=== PATIENT | male | born 1950 | race Caucasian/White ===

== ENCOUNTER 2019-03-23 21:46 | Emergency (ER) | payer BC, MEDICARE ==
[2019-03-23 22:34] VITALS: BP 142/107
[2019-03-23] MEDS ORDERED: Ketorolac 30 MG/ML SDV IVPUSH ONE (23:05)
--- NOTE | 2019-03-23 23:07 | EDM.PDOC ---
ED HPI GENERAL MEDICAL PROBLEM - General Chief Complaint: Gastrointestinal Problem Stated Complaint: CONSTIPATED,CRAMPS Time Seen by Provider: 03/23/19 23:05 Source of Information: Reports: Patient History Limitations: Reports: No Limitations - History of Present Illness INITIAL COMMENTS - FREE TEXT/NARRATIVE: p had a bm yesterday nd tonight he is very uncomfortable. He feels like he can, t get the stool out. He is having cramps because of that. Onset: Other ( this pm he is very uncomfortable. ) Duration: Hour(s): Location: Reports: Abdomen, Other (rectal pain) Associated Symptoms: Reports: No Other Symptoms - Related Data Allergies Allergy/AdvReac Type Severity Reaction Status Date / Time No Known Allergies Allergy Verified 07/28/16 01:37 Home Meds: Home Meds busPIRone HCl [Buspirone HCl] 10 mg PO BID 07/28/16 [History] Aspirin 81 mg PO DAILY 03/23/19 [History] PARoxetine HCl [Paroxetine HCl] 20 mg PO DAILY 03/23/19 [History] Simvastatin 20 mg PO DAILY 03/23/19 [History] Past Medical History Cardiovascular History: Reports: High Cholesterol Gastrointestinal History: Reports: GERD Other Gastrointestinal History: taking Omeprazole daily Musculoskeletal History: Reports: Arthritis Psychiatric History: Reports: Anxiety, Depression - Infectious Disease History Infectious Disease History: Reports: Chicken Pox - Past Surgical History HEENT Surgical History: Reports: Other (See Below) GI Surgical History: Reports: None, Cholecystectomy, Hernia, Inguinal Social & Family History - Family History Family Medical History: Noncontributory - Tobacco Use Smoking Status *Q: Never Smoker - Caffeine Use Caffeine Use: Reports: Coffee - Recreational Drug Use Recreational Drug Use: No - Living Situation & Occupation Living situation: Reports: , with Spouse ED ROS GENERAL - Review of Systems Review Of Systems: See Below Constitutional: Reports: No Symptoms HEENT: Reports: No Symptoms Respiratory: Reports: No Symptoms Cardiovascular: Reports: No Symptoms Endocrine: Reports: No Symptoms GI/Abdominal: Reports: No Symptoms, Constipation, Other ( rectal pressure. ) : Reports: No Symptoms Musculoskeletal: Reports: No Symptoms Skin: Reports: No Symptoms Neurological: Reports: No Symptoms ED EXAM, GI/ABD - Physical Exam Exam: See Below Text/Narrative:: pt arrived with pain in the lower abdoman. He feels like he has alot of stool pushing against the rectum. Exam Limited By: No Limitations General Appearance: Alert, Moderate Distress Ears: Normal TMs Nose: Normal Inspection Throat/Mouth: Normal Inspection Head: Atraumatic Neck: Normal Inspection Respiratory/Chest: No Respiratory Distress Cardiovascular: Regular Rate, Rhythm GI/Abdominal Exam: Other (pressure on the rectum. He is tender without guarding n the lower abdoman. ) (Male) Exam: Deferred Rectal (Males) Exam: Other ( Pt has a large fecal impaction. ) Back Exam: Normal Inspection Extremities: Normal Inspection Neurological: Alert, Oriented, Normal Cognition Psychiatric: Normal Mood Course - Vital Signs Last Recorded V/S: Last Vital Signs Temp 35.6 C 03/23/19 22:34 Pulse 100 03/23/19 22:34 Resp 18 03/23/19 22:34 BP 142/107 H 03/23/19 22:34 Pulse Ox 97 03/23/19 22:34 - Orders/Labs/Meds Labs: Laboratory Tests 03/23/19 03/23/19 Range/Units 23:04 23:15 WBC 12.7 H (4.5-11.0) K/uL RBC 5.02 (4.30-5.90) M/uL Hgb 14.4 (12.0-15.0) g/dL Hct 43.0 (40.0-54.0) % MCV 86 (80-98) fL MCH 29 (27-31) pg MCHC 34 (32-36) % Plt Count 210 (150-400) K/uL Neut % (Auto) 83 H (36-66) % Lymph % (Auto) 8 L (24-44) % [place] % (Auto) 9 H (2-6) % Eos % (Auto) 1 L (2-4) % Baso % (Auto) 0 (0-1) % Sodium 139 L (140-148) mmol/L Potassium 3.7 (3.6-5.2) mmol/L Chloride 102 (100-108) mmol/L Carbon Dioxide 28 (21-32) mmol/L Anion Gap 12.7 (5.0-14.0) mmol/L BUN 16 D (7-18) mg/dL Creatinine 1.1 (0.8-1.3) mg/dL Est Cr Clr Drug Dosing 60.09 mL/min Estimated GFR (MDRD) > 60 (>60) Glucose 182 H (74-106) mg/dL Calcium 9.1 (8.5-10.1) mg/dL Total Bilirubin 0.4 (0.2-1.0) mg/dL AST 21 (15-37) U/L ALT 34 (12-78) U/L Alkaline Phosphatase 75 (46-116) U/L Total Protein 6.8 (6.4-8.2) g/dL Albumin 3.3 L (3.4-5.0) g/dL Globulin 3.5 (2.3-3.5) g/dL Albumin/Globulin Ratio 0.9 L (1.2-2.2) Meds: Medications Discontinued Medications Generic Name Dose Route Start Last Admin Trade Name Freq PRN Reason Stop Dose Admin Hydromorphone HCl 0.5 mg 03/23/19 23:55 03/24/19 00:03 Dilaudid IM 03/23/19 23:56 0.5 mg ONETIME ONE Administration Ketorolac Tromethamine 15 mg 03/23/19 23:05 Toradol IVPUSH 03/23/19 23:06 ONETIME ONE - Re-Assessments/Exams Free Text/Narrative Re-Assessment/Exam: 03/24/19 00:52 pt was given a oil retention enema and then 2 soap suids enemas with good results. Pt is definitely comfortable at this time. 03/27/19 19:28 Departure - Departure Time of Disposition: 00:48 Disposition: Home, Self-Care 01 Condition: Fair Clinical Impression: Constipation - Discharge Information Instructions: Constipation, Adult Referrals: Anne Marie Gomez MD [Primary Care Provider] - Forms: ED Department Discharge Care Plan Goals: schedule for colonscopy, eat 4-5 prunes daily, push fluids, gummy fibers 3-4 daily, high fiber diet, appt in 4-[address] Dumas
[2019-03-23] MEDS ORDERED: HYDROmorphone 0.5 MG/0.5 ML Syringe IM ONE (23:55)
== END 2019-03-24 01:08 | disposition home or self-care (01) ==
LOC: JP.ED 21:46
DX: K59.00 Constipation, unspecified (principal); K21.9 Gastro-esophageal reflux disease without esophagitis; M19.90 Unspecified osteoarthritis, unspecified site; F41.9 Anxiety disorder, unspecified; F32.9 Major depressive disorder, single episode, unspecified; Z90.49 Acquired absence of other specified parts of digestive tract; Z79.82 Long term (current) use of aspirin; Z79.899 Other long term (current) drug therapy
CPT/HCPCS: 36415; 80053; 85025; 96372; 96374; 99283; J1170

== ENCOUNTER 2019-03-29 12:31 | Emergency (ER) | payer MEDICARE ==
--- NOTE | 2019-03-29 12:58 | EDM.PDOC ---
ED HPI GENERAL MEDICAL PROBLEM - General Chief Complaint: Gastrointestinal Problem Stated Complaint: BLOOD/DARK STOOL Time Seen by Provider: 03/29/19 12:52 Source of Information: Reports: Patient, Family, RN Notes Reviewed History Limitations: Reports: No Limitations - History of Present Illness INITIAL COMMENTS - FREE TEXT/NARRATIVE: 68-year-old gentleman presents emergency department today with complaint of black stool he also had one bout of emesis yesterday with bright red blood, at this time no nausea vomiting shortness breath or chest pain at this is a new event for him he has had EGDs in the past with dilation as well as colonoscopy estimates about 5 years ago for both - Related Data Allergies Allergy/AdvReac Type Severity Reaction Status Date / Time No Known Allergies Allergy Verified 03/29/19 13:09 Home Meds: Home Meds busPIRone HCl [Buspirone HCl] 10 mg PO BEDTIME 07/28/16 [History] Aspirin 81 mg PO DAILY 03/23/19 [History] PARoxetine HCl [Paroxetine HCl] 20 mg PO DAILY 03/23/19 [History] Simvastatin 20 mg PO DAILY 03/23/19 [History] busPIRone [Buspar] 20 mg PO ACBREAKFAST 03/29/19 [History] busPIRone [Buspar] 20 mg PO ACDINNER 03/29/19 [History] Past Medical History Cardiovascular History: Reports: High Cholesterol Gastrointestinal History: Reports: GERD Other Gastrointestinal History: taking Omeprazole daily Musculoskeletal History: Reports: Arthritis Psychiatric History: Reports: Anxiety, Depression - Infectious Disease History Infectious Disease History: Reports: Chicken Pox - Past Surgical History HEENT Surgical History: Reports: Other (See Below) GI Surgical History: Reports: None, Cholecystectomy, Hernia, Inguinal Social & Family History - Family History Family Medical History: Noncontributory - Caffeine Use Caffeine Use: Reports: Coffee - Living Situation & Occupation Living situation: Reports: , with Spouse ED ROS GENERAL - Review of Systems Review Of Systems: See Below Constitutional: Reports: No Symptoms HEENT: Reports: No Symptoms Respiratory: Reports: No Symptoms Cardiovascular: Reports: No Symptoms GI/Abdominal: Reports: Black Stool, Hematemesis ED EXAM, GI/ABD - Physical Exam Exam: See Below Exam Limited By: No Limitations General Appearance: Alert, WD/WN, No Apparent Distress Respiratory/Chest: No Respiratory Distress, Lungs Clear, Normal Breath Sounds, No Accessory Muscle Use, Chest Non-Tender Cardiovascular: Regular Rate, Rhythm, No Murmur GI/Abdominal Exam: Soft, Non-Tender Course - Vital Signs Last Recorded V/S: Last Vital Signs Temp 95.5 F 03/29/19 12:45 Pulse 97 03/29/19 13:08 Resp 16 03/29/19 13:08 BP 171/98 H 03/29/19 13:08 Pulse Ox 98 03/29/19 13:08 - Orders/Labs/Meds Orders: Active Orders 24 hr Category Date Time Status Peripheral IV Care [RC] . DIRECTED Care 03/29/19 14:03 Active Pantoprazole [ProTONIX IV] Med 03/29/19 14:15 Active 80 mg IVPUSH .BOLUS Sodium Chloride 0.9% [Saline Flush] Med 03/29/19 14:03 Active 10 ml FLUSH ASDIRECTED PRN Peripheral IV Insertion Adult [OM.PC] Urgent Oth 03/29/19 14:02 Ordered Medication Orders Pantoprazole Sodium (Protonix Iv) 80 mg IVPUSH .BOLUS BROOKE Sodium Chloride (Saline Flush) 10 ml FLUSH ASDIRECTED PRN PRN Reason: Keep Vein Open Labs: Laboratory Tests 03/29/19 03/29/19 03/29/19 Range/Units 13:11 13:11 13:11 WBC 10.3 (4.5-11.0) K/uL RBC 4.07 L (4.30-5.90) M/uL Hgb 11.6 L D (12.0-15.0) g/dL Hct 35.9 L (40.0-54.0) % MCV 88 (80-98) fL MCH 29 (27-31) pg MCHC 32 (32-36) % Plt Count 195 (150-400) K/uL Neut % (Auto) 82 H (36-66) % Lymph % (Auto) 12 L (24-44) % [place] % (Auto) 6 (2-6) % Eos % (Auto) 0 L (2-4) % Baso % (Auto) 0 (0-1) % PT 11.4 (9.5-12.0) sec INR 1.04 (0.80-1.20) Sodium 141 (140-148) mmol/L Potassium 4.6 (3.6-5.2) mmol/L Chloride 108 (100-108) mmol/L Carbon Dioxide 26 (21-32) mmol/L Anion Gap 7.2 (5.0-14.0) mmol/L BUN 30 H D (7-18) mg/dL Creatinine 1.0 (0.8-1.3) mg/dL Est Cr Clr Drug Dosing 66.10 mL/min Estimated GFR (MDRD) > 60 (>60) Glucose 101 (74-106) mg/dL Calcium 9.2 (8.5-10.1) mg/dL Total Bilirubin 0.3 (0.2-1.0) mg/dL AST 16 (15-37) U/L ALT 25 (12-78) U/L Alkaline Phosphatase 63 (46-116) U/L Total Protein 6.2 L (6.4-8.2) g/dL Albumin 3.1 L (3.4-5.0) g/dL Globulin 3.1 (2.3-3.5) g/dL Albumin/Globulin Ratio 1.0 L (1.2-2.2) Meds: Medications Generic Name Dose Route Start Last Admin Trade Name Freq PRN Reason Stop Dose Admin Pantoprazole Sodium 80 mg 03/29/19 14:15 Protonix Iv IVPUSH .BOLUS BROOKE Sodium Chloride 10 ml 03/29/19 14:03 Saline Flush FLUSH ASDIRECTED PRN Keep Vein Open Departure - Departure Time of Disposition: 14:04 Disposition: Home, Self-Care 01 Condition: Fair Clinical Impression: GI bleed Qualifiers: GI bleed type/associated pathology: unspecified gastrointestinal hemorrhage type Qualified Code(s): K92.2 - Gastrointestinal hemorrhage, unspecified - Discharge Information Referrals: Anne Marie Gomez MD [Primary Care Provider] - Forms: ED Department Discharge Additional Instructions: Please report to the outpatient surgery Center for your colonoscopy and EGD, recommend stopping the aspirin follow colonoscopy prep please return to the emergency department with worsening of symptoms - My Orders Last 24 Hours: My Active Orders 03/29/19 14:02 Peripheral IV Insertion Adult [OM.PC] Urgent 03/29/19 14:03 Peripheral IV Care [RC] . DIRECTED Sodium Chloride 0.9% [Saline Flush] 10 ml FLUSH ASDIRECTED PRN 03/29/19 14:15 Pantoprazole [ProTONIX IV] 80 mg IVPUSH .BOLUS - Assessment/Plan Last 24 Hours: My Active Orders 03/29/19 14:02 Peripheral IV Insertion Adult [OM.PC] Urgent 03/29/19 14:03 Peripheral IV Care [RC] . DIRECTED Sodium Chloride 0.9% [Saline Flush] 10 ml FLUSH ASDIRECTED PRN 03/29/19 14:15 Pantoprazole [ProTONIX IV] 80 mg IVPUSH .BOLUS Plan: Assessment Acuity = acute Site and laterality = GI bleed Etiology = suspicious for upper source Manifestations = none Location of injury = Home Lab values = hemoglobin low 11.6 consistent normochromic anemia, CMP and INR within normal limits] Plan Called discussed case Dr. Vanessa at 1400 plan is for EGD and colonoscopy we'll set that up for Wednesday morning in the meantime he will be given 80 mg Protonix IV push now as well as provided colonoscopy prep for tomorrow, procedures will be 8:30 Wednesday morning This note was dictated using [employer] voice recognition software please call with any questions on syntax or grammar.
[2019-03-29 13:09] VITALS: BP 171/98
[2019-03-29] MEDS: Sodium Chloride 0.9% 10 ML Syringe FLUSH PRN (14:19)
[2019-03-29] MEDS: Pantoprazole 40 MG Vial IVPUSH SCH (14:30)
== END 2019-03-29 15:03 | disposition home or self-care (01) ==
LOC: JP.ED 12:31
DX: K92.2 Gastrointestinal hemorrhage, unspecified (principal); E78.00 Pure hypercholesterolemia, unspecified; K21.9 Gastro-esophageal reflux disease without esophagitis; F41.9 Anxiety disorder, unspecified; F32.9 Major depressive disorder, single episode, unspecified; Z79.82 Long term (current) use of aspirin; Z79.899 Other long term (current) drug therapy
CPT/HCPCS: 36415; 80053; 85025; 85610; 96374; 99284; C9113

== ENCOUNTER 2019-03-31 08:21 | Day surgery (SDC) | payer MEDICARE ==
[2019-03-31] MEDS ORDERED: Dextrose 5%-Lactated Ringers 1,000 ML IV SCH (09:00)
[2019-03-31] MEDS ORDERED: fentaNYL 100 MCG/2 ML SDV ONE (09:25)
[2019-03-31] MEDS ORDERED: Propofol 200 MG/20 ML SDV ONE (09:26)
[2019-03-31] MEDS ORDERED: Midazolam 1 MG/ML 2 ML SDV ONE (09:26)
[2019-03-31] MEDS ORDERED: Pantoprazole 40 MG Vial IVPUSH ONE (09:56)
[2019-03-31 11:12] VITALS: BP 118/85; PULSE 65
--- NOTE | 2019-04-10 12:26 | OR ---
DATE OF PROCEDURE: 03/31/2019 PREOPERATIVE DIAGNOSIS: Gastrointestinal bleeding. POSTOPERATIVE DIAGNOSES: 1. Upper gastrointestinal bleeding associated with: a. Ulcerative esophagitis. b. Erosive antral gastritis. 2. Normal colonoscopic examination. OPERATIVE PROCEDURES: 1. Upper GI endoscopy with biopsies of antrum for CLOtest. 2. Flexible colonoscopy. ANESTHESIA: IV sedation. INDICATION FOR PROCEDURE: This is a 68-year-old who is seen in the emergency room with some hematemesis. He was given Protonix and then also was started on ranitidine 150 mg a day. Plan is to proceed with upper GI endoscopy as well as colonoscopy for diagnostic purposes. Potential risks including bleeding and perforation were discussed, and the patient wishes to proceed. DETAILS OF PROCEDURE: The patient was taken to the operating room, placed in the left lateral decubitus position. IV sedation was administered, after which the upper GI endoscope was passed orally through the length of esophagus and into the stomach with retroflexion view of the fundus, and thereafter, through the pyloric channel and into the proximal duodenum. Findings included normal hypopharynx, larynx, upper esophageal sphincter, and esophageal body. At the EG junction, the patient was noted to have a quite marked ulcerated esophagitis. No active bleeding was seen, but this was clearly site of likely recent bleeding associated with no plaquing or stricturing, i.e., no gross sites of malignant change. 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 Within the stomach, there were some scattered antral erosions without active bleeding. Pyloric channel and duodenum to the junction of the third and fourth portions were unremarkable. At this point, biopsies were obtained from the antrum and sent for CLOtest for H. pylori. Minimal bleeding from the biopsy site was seen and the procedure was then concluded. Attention was taken to the colonoscopy. Initial digital rectal exam was performed and was unremarkable. Colonoscope was then passed to the level of the rectum with retroflexion revealing uncomplicated hemorrhoidal columns. The scope was eventually passed to the level of the cecum. Bowel prep was fairly good with some moderate amount of liquid stool present to that level, however, no abnormalities were noted. There were specifically no areas of diverticular disease, no areas of colitis, and no polyps or other signs of neoplasia, and no blood or bleeding. Scope was then withdrawn and the above findings were then reconfirmed. The procedure was then concluded. The patient was taken to the recovery room in satisfactory condition. As the patient was started on ranitidine in the emergency room, we will go with that for now, and plan to proceed with a repeat upper endoscopy to evaluate esophagitis situation in 1 month. Ras Vanessa MD /[id number]
== END 2019-03-31 11:30 | disposition home or self-care (01) ==
LOC: JP.SDS 08:21
PROVIDERS: ATTEND Surgery
DX: K22.11 Ulcer of esophagus with bleeding (principal); K29.71 Gastritis, unspecified, with bleeding; K25.4 Chronic or unspecified gastric ulcer with hemorrhage; K64.9 Unspecified hemorrhoids; K21.9 Gastro-esophageal reflux disease without esophagitis; E78.5 Hyperlipidemia, unspecified
CPT/HCPCS: 43239; 45378; 87081; C9113; J2250; J2704; J3010; J7042

== ENCOUNTER 2019-05-01 06:49 | Day surgery (SDC) | payer MEDICARE ==
[2019-05-01] MEDS ORDERED: Dextrose 5%-Lactated Ringers 1,000 ML IV SCH (07:30)
[2019-05-01] MEDS ORDERED: Midazolam 1 MG/ML 2 ML SDV ONE (08:49)
[2019-05-01] MEDS ORDERED: Propofol 200 MG/20 ML SDV ONE (08:49)
[2019-05-01] MEDS ORDERED: fentaNYL 100 MCG/2 ML SDV ONE (08:49)
[2019-05-01 10:27] VITALS: BP 150/94; PULSE 57
--- NOTE | 2019-05-08 14:10 | OR ---
DATE OF PROCEDURE: 05/01/2019 PREOPERATIVE DIAGNOSIS: History of recent severe gastroesophageal reflux disease. POSTOPERATIVE DIAGNOSES: Persistent multiple ulcers of esophagogastric junction despite ongoing medical management. OPERATIVE PROCEDURE: Esophagogastroduodenoscopy with biopsies of esophagogastric junction. ANESTHESIA: IV sedation. INDICATION FOR PROCEDURE: This is a 68-year-old who recently presented with quite severe gastroesophageal reflux disease. He has been initiated on maximal medical management at this point and is to have a followup endoscopy to assess healing as well as to provide some biopsies as these were not done previously due to the amount of inflammation and ulceration present. Potential risks of the procedure including bleeding and perforation were discussed, and the patient wishes to proceed. DETAILS OF PROCEDURE: The patient was taken to the operating room and placed in a left lateral decubitus position. IV sedation was administered, after which the upper GI endoscope was passed orally through the length of the esophagus and into the stomach with retroflexion view of the fundus, and thereafter through the pyloric channel and into the proximal duodenum. Findings included some redness in the hypopharynx and larynx. Upper esophageal sphincter and esophageal body were unremarkable. At the EG junction, however, the patient was noted to have a moderate-sized hiatal hernia and quite striking persistent ulceration at multiple locations of the esophagogastric junction. 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 No stricturing, plaquing, or signs of neoplasia were grossly evident. Following this, the remainder of the stomach and duodenum to the junction of the third and fourth portions were unremarkable. At this point, multiple biopsies were obtained from esophagogastric junction and sent for histologic evaluation. Minimal bleeding from the biopsy sites was seen. The procedure was then concluded. At this point, the patient appeared to have gastroesophageal reflux disease refractory to medical management. We will discuss this with the patient and postprocedure regarding the indication for an antireflux procedure. Ras Vanessa MD /[id number]
== END 2019-05-01 11:09 | disposition home or self-care (01) ==
LOC: JP.SDS 06:49
PROVIDERS: ATTEND Surgery
DX: K22.10 Ulcer of esophagus without bleeding (principal); K21.0 Gastro-esophageal reflux disease with esophagitis; K44.9 Diaphragmatic hernia without obstruction or gangrene; J39.2 Other diseases of pharynx; J38.7 Other diseases of larynx
CPT/HCPCS: 36415; 43239; 80053; 83735; 84100; 85027; 88305; 88312; J2250; J2704; J3010; J7042

== ENCOUNTER 2019-05-09 05:58 | Inpatient (IN) | payer MEDICARE ==
[2019-05-09] MEDS ORDERED: Acetaminophen 500 MG Tab PO ONE (06:00)
[2019-05-09] MEDS ORDERED: ceFAZolin 2 GM in Premix Bag 1 BAG IV ONE (06:30)
[2019-05-09] MEDS ORDERED: Dextrose 5%-Lactated Ringers 1,000 ML IV SCH (06:30)
[2019-05-09] MEDS ORDERED: Neostigmine Methylsulfate 1 MG/ML 5 ML Syringe ONE (07:04)
[2019-05-09] MEDS ORDERED: Glycopyrrolate 0.2 MG/ML 5 ML MDV ONE (07:04)
[2019-05-09] MEDS ORDERED: fentaNYL 250 MCG/5 ML SDV ONE ×2 (07:04→09:02)
[2019-05-09] MEDS ORDERED: Ondansetron 4 MG/2 ML SDV ONE (07:04)
[2019-05-09] MEDS ORDERED: Rocuronium 50 MG/5 ML Vial ONE (07:04)
[2019-05-09] MEDS ORDERED: Dexamethasone 4 MG/ML SDV ONE (07:04)
[2019-05-09] MEDS ORDERED: Propofol 200 MG/20 ML SDV ONE (07:04)
[2019-05-09] MEDS ORDERED: Succinylcholine 200 MG/10 ML MDV ONE (07:04)
[2019-05-09] MEDS ORDERED: Ropivacaine 34 ML, dexAMETHasone 8 MG, EPINEPHrine 0.4 MG, Sodium Chloride 0.9% 43.6 ML NERVRT SCH ×4 (08:00)
[2019-05-09] MEDS ORDERED: Ketamine 50 MG in Sodium Chloride 0.9% 49.5 ML IV SCH (08:00)
[2019-05-09] MEDS ORDERED: Ketamine 500 MG/5 ML MDV IV SCH (08:00)
[2019-05-09] MEDS ORDERED: Lactated Ringers 1,000 ML ONE (09:03)
[2019-05-09] MEDS ORDERED: HYDROmorphone 1 MG/ML Syringe IV PRN (13:55)
[2019-05-09] MEDS ORDERED: HYDROmorphone 0.5 MG/0.5 ML Syringe IVPUSH PRN (13:55)
[2019-05-09] MEDS: Dextrose 5%-Lactated Ringers 1,000 ML IV SCH ×2 (14:14→21:25)
[2019-05-09] MEDS: ceFAZolin 2 GM in Premix Bag 1 BAG IV SCH ×2 (15:34→23:12)
[2019-05-09] MEDS: Metoclopramide 10 MG/2 ML SDV IV SCH ×2 (15:34→21:27)
[2019-05-09] MEDS: busPIRone 10 MG Tab PO SCH ×2 (15:34→21:28)
[2019-05-09] MEDS: Pantoprazole 40 MG Vial IV SCH (15:34)
[2019-05-09] MEDS: Acetaminophen 500 MG Tab PO SCH ×2 (15:34→21:27)
[2019-05-09] MEDS ORDERED: LORazepam 1 MG Tab PO ONE (23:37)
[2019-05-10] MEDS ORDERED: Dextrose 5%-Lactated Ringers 1,000 ML IV SCH (01:01)
[2019-05-10] MEDS: Metoclopramide 10 MG/2 ML SDV IV SCH ×4 (03:44→21:10)
[2019-05-10] MEDS: Acetaminophen 500 MG Tab PO SCH (03:45)
[2019-05-10] MEDS: ceFAZolin 2 GM in Premix Bag 1 BAG IV SCH (07:18)
[2019-05-10] MEDS: busPIRone 10 MG Tab PO SCH ×3 (07:19→21:10)
[2019-05-10] MEDS ORDERED: Acetaminophen 500 MG Tab PO PRN (08:00)
[2019-05-10] MEDS: Aspirin 81 MG Tab.EC PO SCH (09:08)
[2019-05-10] MEDS: PARoxetine 20 MG Tab PO SCH (09:08)
[2019-05-10] MEDS: LORazepam 1 MG Tab PO PRN ×2 (13:51→21:09)
[2019-05-10] MEDS: Pantoprazole 40 MG Vial IV SCH (15:58)
[2019-05-11] MEDS: LORazepam 1 MG Tab PO PRN ×2 (01:56→08:38)
[2019-05-11] MEDS: Metoclopramide 10 MG/2 ML SDV IV SCH ×2 (04:48→09:32)
[2019-05-11 07:16] VITALS: BP 149/81; PULSE 87
[2019-05-11] MEDS: busPIRone 10 MG Tab PO SCH (07:25)
[2019-05-11] MEDS ORDERED: Magnesium Hydroxide 400 MG/5 ML Susp 30 ML Cup PO PRN (09:15)
[2019-05-11] MEDS: Aspirin 81 MG Tab.EC PO SCH (09:31)
[2019-05-11] MEDS: PARoxetine 20 MG Tab PO SCH (09:31)
[2019-05-11] MEDS ORDERED: Pantoprazole 40 MG Tab.CR PO SCH (16:30)
--- NOTE | 2019-05-12 08:35 | PN ---
DATE OF SERVICE: 05/10/2019 The patient is postoperative day #1 from laparoscopic Efraín fundoplication. Clinically, he has done well overnight and he is requiring little in the way of pain medication. We will switch to Tylenol p.r.n. Otherwise, we will begin a full liquid diet and make sure that he goes okay. We will have dietary see him and he will likely be ready for discharge home tomorrow. Ras Vanessa MD /[id number]
--- NOTE | 2019-05-12 10:45 | DISCH ---
FINAL DIAGNOSES: 1. 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 2. Mediastinal lipoma. 3. Anxiety. 4. Enlarged perigastric lymph nodes. OPERATIVE PROCEDURES: This was done on 05/09/2019, diagnostic laparoscopy with: 1. Repair of paraesophageal diaphragmatic hernia with mesh, including Efraín fundoplication. 2. Excision of mediastinal lipoma. 3. Excision of perigastric lymph node. SUMMARY: This is a 68-year-old male, presenting with gastroesophageal reflux disease that has been refractory to management. This was associated with a quite large paraesophageal diaphragmatic hernia. The patient underwent the above-noted procedure on the date of admission. Postoperatively, no major problems were noted. He was fairly anxious and required some Ativan, but will be sent home with his usual medications including Paxil and BuSpar. Otherwise, he is tolerating the full liquid diet well and will be staying on that until 05/23/2019. Follow up with Dr. Vanessa, [facility] on 05/17/2019. Continue his usual home medications plus Tylenol 650 p.o. q.4 hours p.r.n. pain, he will be sent home with 2 doses of milk of magnesia to take p.r.n. constipation, and he will be instructed to stop the omeprazole starting this coming Wednesday.
--- NOTE | 2019-05-17 11:48 | OR ---
DATE OF PROCEDURE: 05/09/2019 PREOPERATIVE DIAGNOSIS: Gastroesophageal reflux disease refractory to medical management. POSTOPERATIVE DIAGNOSES: 1. Gastroesophageal reflux disease refractory to medical management associated with large paraesophageal diaphragmatic hernia. 2. Mediastinal lipoma. 3. Enlarged perigastric lymph node. OPERATIVE PROCEDURES: Diagnostic laparoscopy with, 1. Repair of paraesophageal diaphragmatic hernia with mesh with Efraín fundoplication (28800). 2. Excision of mediastinal lipoma (38408). 3. Excision of perigastric lymph node (51663). ANESTHESIA: General. INDICATION FOR PROCEDURE: This is a 68-year-old presenting with gastroesophageal reflux disease refractory to medical management. Little over a month ago, the patient underwent an upper endoscopy, which showed severe ulcerative esophagitis, and he was started on maximal medical treatment. Followup endoscopy last week showed continued ulceration along with what appeared to be a large paraesophageal diaphragmatic hernia. At this point, the patient appears to have reflux disease that is refractory to medical management. The plan is to proceed with a Efraín fundoplication. Potential risks including bleeding, infection, injury to underlying viscera, the possibility of complications from fundoplication such as dysphagia, gas-bloat syndrome, disorders of gastric emptying rate, as well as the possibility of incomplete relief of reflux symptoms were gone over and lastly the remote possibility of cardiopulmonary, septic, or hemorrhagic complications leading to were reviewed, and the patient wishes to proceed. DETAILS OF PROCEDURE: The patient was taken to the operating room and after general endotracheal anesthesia was induced, he was placed in a lithotomy position, and the abdomen was prepped and draped. 15 cm inferior and 5 cm left of the xiphoid process, a transverse incision was made and peritoneal cavity entered under direct vision with an Optiview trocar. Peritoneal cavity was inflated to 15 mmHg pressure with CO2. Laparoscope was inserted and no underlying trocar insertion site injuries were seen. Bilateral subcostal transversus abdominis plane blocks were then placed and 4 additional trocars were placed across the upper and mid abdomen. As the liver was retracted anteriorly, 2 initial findings were seen. One was that of a fairly large perigastric enlarged lymph node. This was felt best resected for histologic evaluation, and this was divided away from the surrounding attachments with a Harmonic scalpel and delivered from the field. As one retracted the esophagus downward, the patient was noted to have, as expected, a large paraesophageal hernia with prolapse of a large amount of the perigastric fat and gastric fundus in the plane anterior and slightly to the left of the esophagogastric junction. As this was reduced, the peritoneum overlying it was incised and reflected downward. During the course of dissection, the patient was noted to have a lipomatous tissue both anterior and posterior to the esophagogastric junction. Both of these areas were excised to facilitate a more adequate crural repair. Once the esophagus was freed up of the surrounding attachments, such that there was a roughly 5 cm length of intraabdominal esophagus, the crural repair was accomplished initially with posterior row of 0 Ethibond sutures reinforced with PTFE pledgets. Given the size of the defect, we elected to use a dissolvable mesh, this being a Phasix ST mesh, which was cut such that it covered the crural repair and then slightly along the side of the esophagus. This was put into position and fixed with some titanium tacking screws. As mentioned above, during the course of the esophageal resection, the mediastinal lipomatous tissue had been excised and delivered from the field. The short gastric vessels were then divided up to the level, including the highest and posterior short gastric vessels with Harmonic Scalpel. This resulted in a satisfactory mobile fundus, which was retrieved through the retroesophageal window. A guidewire was then passed transorally per Anesthesia into the stomach and over this, a 54-[place] Savary dilator was placed and a 3-stitch 2-cm fundoplication was accomplished. Each of the bites were with 0 Ethibond sutures reinforced with PTFE pledgets, included a stitch of the underlying esophagus to help fix it in position. Two additional sutures between the fundoplication and the overlying diaphragm with the same stitch-pledget combination, were then also placed, again, to help fix this in a correct position. Following this, the dilator and wire were removed. The fundoplication was inspected and found to be satisfactorily floppy. At that point, no further problems were noted. Trocars were removed, and the peritoneal cavity was deflated. Incisions were closed with 4-0 Vicryl skin stitch. The patient was taken to the recovery room in a satisfactory condition. There were no evident complications. Ras Vanessa MD /[id number]
== END 2019-05-11 09:45 | disposition home or self-care (01) | DRG 328 ==
LOC: JP.SDSSCHI 05:58 → JP.SDS 05:58 → EDSTATUS 07:15 → JP.MS 10:00
PROVIDERS: ADMIT Surgery; ATTEND Surgery
PROC: 0BUT4JZ Supplement Diaphragm with Synthetic Substitute, Percutaneous Endoscopic Approach (ICD-10-PCS; principal; 2019-05-09)
PROC: 07BD4ZX Excision of Aortic Lymphatic, Percutaneous Endoscopic Approach, Diagnostic (ICD-10-PCS; 2019-05-09)
PROC: 0JB63ZZ Excision of Chest Subcutaneous Tissue and Fascia, Percutaneous Approach (ICD-10-PCS; 2019-05-09)
DX: K44.9 Diaphragmatic hernia without obstruction or gangrene (principal); K21.9 Gastro-esophageal reflux disease without esophagitis; D17.1 Benign lipomatous neoplasm of skin and subcutaneous tissue of trunk; F32.9 Major depressive disorder, single episode, unspecified; F41.1 Generalized anxiety disorder; E78.5 Hyperlipidemia, unspecified; F51.05 Insomnia due to other mental disorder; Z87.891 Personal history of nicotine dependence; Z79.82 Long term (current) use of aspirin; Z79.899 Other long term (current) drug therapy
CPT/HCPCS: 88304; 88305; 94762; A9270-GY; C1713; C1781; C9113; J0171; J0330; J0690; J1100; J2405; J2704; J2710; J2765; J2795; J3010; J3490; J7042; J7050; J7120

== ENCOUNTER 2020-04-29 06:39 | Day surgery (SDC) | payer MEDICARE ==
[2020-04-29] MEDS ORDERED: Propofol 200 MG/20 ML SDV ONE (07:11)
[2020-04-29] MEDS ORDERED: Midazolam 1 MG/ML 2 ML SDV ONE (07:11)
[2020-04-29] MEDS ORDERED: fentaNYL 100 MCG/2 ML SDV ONE (07:11)
[2020-04-29] MEDS ORDERED: Dextrose 5%-Lactated Ringers 1,000 ML IV SCH (07:15)
[2020-04-29 09:39] VITALS: BP 131/90; PULSE 72
--- NOTE | 2020-05-06 14:49 | OR ---
DATE OF PROCEDURE: 04/29/2020 SURGEON: Ras Vanessa MD PREOPERATIVE DIAGNOSIS: History of colon polyps with some recent rectal bleeding. POSTOPERATIVE DIAGNOSIS: Single polyp in the midsigmoid colon (45 cm). OPERATIVE PROCEDURE: Flexible colonoscopy with polypectomy by snare technique (specimen obliterated by the cautery snare). ANESTHESIA: IV sedation. INDICATION FOR PROCEDURE: The patient is status post colonoscopy with polypectomy in the past. Most recent colonoscopy was in March 2019. This was associated with relatively poor prep and now the patient reported some recent rectal bleeding. Given this, the colonoscopy will be repeated. Potential risks of the procedure including bleeding and perforation were discussed, and the patient wishes to proceed. DETAILS OF PROCEDURE: The patient was taken to the operating room, placed in a left lateral decubitus position. IV sedation was administered after which the initial digital rectal exam was performed, it was unremarkable. Colonoscope was then passed into the rectum with retroflexion revealing uncomplicated hemorrhoidal columns. Scope was then eventually passed to the level of the cecum. Prep was quite good with there only being a small amount of liquid stool present. No areas of diverticulosis and no areas of colitis were seen. There was a single quite small polyp in the range of 2 mm located at 45 cm from the dentate line. This was encircled at its base with cautery snare and upon cauterization more or less it became obliterated with no identifiable tissue available for review. The polyp of this size will certainly be benign and otherwise examination was unremarkable and the scope withdrawn and procedure then concluded. Recommendation would be to repeat the colonoscopy in 3 years. Ras Vanessa MD /[id number]
== END 2020-04-29 10:00 | disposition home or self-care (01) ==
LOC: JP.SDS 06:39
PROVIDERS: ATTEND Surgery
DX: K63.5 Polyp of colon (principal); K64.9 Unspecified hemorrhoids; E78.5 Hyperlipidemia, unspecified; K21.9 Gastro-esophageal reflux disease without esophagitis; F32.9 Major depressive disorder, single episode, unspecified; Z86.010 Personal history of colon polyps
CPT/HCPCS: 45385; J2250; J2704; J3010; J7121

== ENCOUNTER 2023-08-02 07:57 | Day surgery (SDC) | payer MEDICARE ==
[~2023-08-02 07:57] MED LIST: Propofol 200 MG/20 ML SDV ONE; fentaNYL 100 MCG/2 ML SDV ONE
[2023-08-02] MEDS ORDERED: Lactated Ringers 1,000 ML IV SCH (08:30)
[2023-08-02 10:22] VITALS: BP 134/86; PULSE 62
== END 2023-08-02 10:41 | disposition home or self-care (01) ==
LOC: JP.SDS 07:57
PROVIDERS: ATTEND Student in an Organized Health Care Education/Training Program
DX: Z12.11 Encounter for screening for malignant neoplasm of colon (principal); K57.30 Diverticulosis of large intestine without perforation or abscess without bleeding; F41.1 Generalized anxiety disorder; K21.9 Gastro-esophageal reflux disease without esophagitis; Z86.010 Personal history of colon polyps; Z79.899 Other long term (current) drug therapy; Z98.890 Other specified postprocedural states; Z79.82 Long term (current) use of aspirin
CPT/HCPCS: 45378; J2704; J3010; J7120